=== PATIENT | female | born 1950 ===

== ENCOUNTER → 2020-06-14 14:04 | Outpatient (CLI) | payer MEDICARE, OTHER, SELFPAY ==
[2020-06-17 07:25] LABS: COVID19 Sendout Not Detected (Not Detect)
== END ==
PROVIDERS: PCP Internal Medicine Geriatric Medicine; Visit Provider Physician Assistant
DX: Z01.818 Encounter for other preprocedural examination (principal)
CPT/HCPCS: 87635